=== PATIENT | male | born 1990 | race Hispanic/Latino ===

== ENCOUNTER 2024-11-20 19:21 | Emergency (ER) | payer OTHER ==
[~2024-11-20] VITALS: Ht 165.1 cm; Wt 77.6 kg
[~2024-11-20 19:21] MED LIST: ACET-2743 PO; IBUP-2077 PO
--- NOTE | 2024-11-20 19:50 | ERN ---
ED Note History of Present Illness Stated Complaint: C/O HEADACHE,SORE THROAT, PAIN TO EARS,FEVER Chief Complaint: Sore Throat Time Seen by MD: 19:29 Dictation: PATIENT IS A 34-YEAR-OLD MALE COMING IN TODAY WITH FEVER CHILLS AND A SORE THROAT SINCE SUNDAY. HE STATES HE HAS HAD NO NAUSEA VOMITING DOES HAVE A FRONTAL HEADACHE. STATES HE WENT TO [facility] ER ON SUNDAY AND WAS PRESCRIBED AMOXICILLIN 500 T.I.D.. STATES HIS THROAT GOT MILDLY BETTER AND THEN CAME HERE ON SUNDAY AND WAS SEEN, CT WAS DONE THAT DID NOT SHOW AN ABSCESS BUT THERE WERE NO ADDITIONAL MEDICATIONS GIVEN. PATIENT NOW TODAY FOR MORE RELIEF. S NOT SEEN HIS PRIMARY CARE DOCTOR FOR MANAGEMENT. 101.7. VOICE IS CLEAR Allergies: Coded Allergies: No Known Drug Allergies (Unverified Allergy, Unknown, 11/18/24) Home Meds Active Scripts Acetaminophen (Tylenol Extra Strength) 500 Mg Tablet, 1000 MG PO QID PRN for PAIN for 10 Days, #20 TAB Prov:ALBERTO DAVIS DO 11/18/24 Ibuprofen (Ibuprofen 800 mg Tab) 800 Mg Tab, 800 MG PO Q6H PRN for PAIN, #30 TAB Prov:ALBERTO DAVIS DO 11/18/24 Past Medical History Past Medical History: No Pertinent History Surgical History: Other Surgical History Other: LEFT KNEE SX RN Note Reviewed/Agreed w/PFSH: Yes Review of System Dictation CONSTITUTIONAL: NEGATIVE EXCEPT FOR HPI FEVER CHILLS HEAD/FACE: NEGATIVE EXCEPT FOR HPI EENT: NEGATIVE EXCEPT FOR HPI SORE THROAT WITH PAINFUL SWALLOWING RESPIRATORY: NEGATIVE EXCEPT FOR HPI GASTROINTESTINAL/ABDOMINAL: NEGATIVE EXCEPT FOR HPI GENITOURINARY: NEGATIVE EXCEPT FOR HPI MUSCULOSKELETAL: NEGATIVE EXCEPT FOR HPI INTEGUMENTARY: NEGATIVE EXCEPT FOR HPI NEUROLOGICAL/PSYCH: NEGATIVE EXCEPT FOR HPI HEMATOLOGIC/LYMPHATIC: NEGATIVE EXCEPT FOR HPI ALL SYSTEMS NEGATIVE, EXCEPT NOTED ABOVE. 13 POINT REVIEW OF SYSTEMS ASSESSED AND ALL NEGATIVE EXCEPT FOR ABOVE. Initial Vital Sign VS Vital Signs Date Time Temp Pulse Resp B/P (MAP) Pulse Ox O2 Delivery O2 Flow Rate FiO2 11/20/24 19:24 101.7 107 20 137/83 97 Room Air 11/20/24 20:23 0 21 Physical Exam Dictation VITAL SIGNS REVIEWED GENERAL APPEARANCE: ALERT, ORIENTED X 3, MODERATE ACUTE DISTRESS, WELL DEV ELOPED, NOURISHED. HEAD AND FACE: NON-TRAUMATIC. EYES: PERRL, PINK CONJUNCTIVAS, EYELID NO TRAUMA, ANTERIOR CHAMBER WITH ARCUS SENILIS. EARS: PINNAS INTACT AND NO SIGNS OF TRAUMA OR ERYTHEMA EAR CANALS CLEAR AND NO DISCHARGE TM NO ERYTHEMA NOSE: NO DISCHARGE, NO BLEEDING. OROPHARYNX: MOUTH NORMAL, TONGUE PINK, PHARYNX CLEAR, BILATERAL TONSILS 3/4 BILATERALLY AND ERYTHEMATOUS. NO UVULAR DEVIATION VOICE IS CLEAR, NO ABSCESSES NOTED, MUCOUS MEMBRANE MOIST NECK: SUPPLE, NON-TENDER, NO THYROMEGALY, NO MASSES, NO JVD, NO BRUITS BREAST:DEFERRED CHEST:NO TENDERNESS, NO CREPITUS, NO PARADOXICAL MOVEMENT, NO RETRACTIONS LUNGS:CLEAR, WELL-VENTILATED, SYMMETRIC, NO RALES, NO WHEEZING, NO RHONCHI, NO STRIDOR, GOOD BREATH SOUNDS BILATERALLY HEART: REGULAR RATE, REGULAR RHYTHM, NO MURMUR, NO GALLOPS VASCULAR: NO PERIPHERAL EDEMA, ABDOMEN: SOFT, POSITIVE BOWEL SOUNDS, NONDISTENDED, NO GUARDING, NONTENDER, NO REBOUND, NO MASSES NO HEPATOMEGALY, NO SPLENOMEGALY, NO RAMON'S SIGN, NO HERNIAS. RECTAL: DEFERRED GENITAL: DEFERRED NEUROLOGICAL: NORMAL SPEECH, MOTOR FUNCTION INTACT, SENSORY FUNCTION INTACT MUSCULOSKELETAL: NECK NONTENDER, FULL RANGE OF MOTION, BACK NONTENDER, FULL RANGE OF MOTION, EXTREMITIES: NONTENDER, FULL RANGE OF MOTION SKIN: COLOR PINK, DRY, NO TURGOR, NO RASH, NO LACERATIONS, NO ABRASIONS, NO CONTUSIONS. LYMPHATIC: DEFERRED Results (Laboratory/Radiology) Labs Reviewed?: Yes ED Course ED Course Orders Procedure Category Date Status Time Saline Lock Iv CPOE 11/20/24 Transmitted 19:45 Ceftriaxone 2gm Vial PHA 11/20/24 Complete (Rocephin 2gm Inj) 19:45 Ketorolac PHA 11/20/24 Complete Tromethamine 30mg/Ml 20:00 Dexamethasone 4mg/Ml PHA 11/20/24 Complete 1ml Vial (Dexametha 19:45 Current Medications Medications (Trade) Dose Ordered Sig/Lorenza Route PRN Reason Start Time Stop Time Status Last Admin Dose Admin Ceftriaxone Sodium (Rocephin 2gm Inj) 2 gm ONCE STAT IVPB 11/20/24 19:45 11/20/24 19:49 DC 11/20/24 20:04 Dexamethasone Sodium Phosphate (dexaMETHasone 4MG/ML 1ML VIAL) 8 mg ONCE STAT IV 11/20/24 19:45 11/20/24 19:49 DC 11/20/24 20:04 Ketorolac Tromethamine (toRADol) 30 mg ONCE ONCE IVP 11/20/24 20:00 11/20/24 20:01 DC 11/20/24 20:04 Vital Signs Date Time Temp Pulse Resp B/P (MAP) Pulse Ox O2 Delivery O2 Flow Rate FiO2 11/20/24 20:23 100.2 90 18 119/69 98 Room Air* 0 21 11/20/24 19:24 101.7 107 20 137/83 97 Room Air 1950/PATIENT WILL BE TREATED WITH IV ROCEPHIN 2 G, TORADOL 30, DECADRON 8 MG FOR OUTPATIENT TREATMENT FAILURE FOR ACUTE TONSILLITIS. CAT SCAN DONE TWO DAYS AGO DOES NOT SHOW ANY DRAINABLE MASS AND NO ABSCESS. PATIENT WILL BE TREATED AND REFERRED TO HIS PRIMARY CARE DOCTOR TOMORROW WITHOUT FAIL FOR MANAGEMENT. 2030/PATIENT RECEIVED ANTIBIOTICS DIRECTED ABOVE. STATES HE FEELS MARKEDLY IMPROVED AFTER TREATMENT. HE IS AWARE THAT HE HAS TO STOP AMOXICILLIN WE WILL START ON AUGMENTIN 875 B.I.D. FOR SEVEN MORE DAYS AND TO FOLLOW UP WITH HIS PRIMARY CARE DOCTOR TOMORROW FOR ENT REFERRAL Medical Decision Making MDM MEDICAL DISCHARGE MAKING BASED ON EMPIRIC TREATMENT FOR ACUTE STREPTOCOCCAL TONSILLITIS AND FAILED OUTPATIENT TREATMENT. PATIENT RECEIVED ROCEPHIN 2 G, TORADOL 30, DECADRON 8 MG IV PUSH. DISCHARGED HOME ON AUGMENTIN 875 AND PREDNISONE TOLD SEE HIS PRIMARY CARE DOCTOR FOR ENT REFERRAL DX & DISP Disposition: Discharge Departure Impression: Primary Impression: Acute streptococcal tonsillitis, unspecified Additional Impression: Failure of outpatient treatment Condition: Stable Scripts Prednisone (Prednisone) 20 Mg Tablet 1 TAB PO AD for 6 Days, #14 TAB 0 Refills TAKE 1 TAB BY MOUTH THREE TIMES PER DAY X3 DAYS, THEN TAKE 1 TAB BY MOUTH TWICE A DAY X2 DAYS, THEN TAKE 1 TAB BY MOUTH ONCE A DAY X1 DAY. Prov: JOSEPH CLEMENTS NP 11/20/24 Amoxicillin/Potassium Clav (Amox Tr-K Clv 875-125 mg Tab) 875 Mg-125 Mg Tablet 1 EACH PO BID for 7 Days, #14 TAB 0 Refills Prov: JOSEPH CLEMENTS NP 11/20/24 Additional Instructions: FOLLOW-UP WITH PRIMARY CARE PROVIDER IN 1 TO 2 DAYS. TAKE MEDICATIONS DIRECTED HERE IN THE EMERGENCY ROOM. OKAY TO CONTINUE HOME MEDICATIONS UNLESS OTHERWISE DISCUSSED DURING YOUR VISIT IN THE EMERGENCY ROOM TODAY. RETURN TO YOUR NEAREST EMERGENCY ROOM IF SYMPTOMS WORSEN OR IF THERE IS NO IMPROVEMENT. CALL 911 IF YOU NEED IMMEDIATE ASSISTANCE. TAKE TYLENOL OR MOTRIN [id number] NEEDED AND IF NO CONTRAINDICATIONS ARE PRESENT. INCREASE ORAL HYDRATION. A WOUND CULTURE OR URINE CULTURE WAS ORDERED HERE IN THE EMERGENCY ROOM DEPARTMENT PLEASE FOLLOW-UP WITH PRIMARY CARE PROVIDER AND ADVISE THEM TO GET REPEAT PORTS FROM OUR FACILITY. IF YOU HAD ANY MARGIE WRAP/SPLINTS THAT WERE APPLIED HERE, PLEASE DO NOT REMOVE THEM UNTIL YOU SEE YOUR PRIMARY CARE OR SPECIALTY. STOP AMOXICILLIN FROM YOUR ER VISIT. BEGIN AUGMENTIN 875 DIRECTED UNTIL GONE. TAKE PREDNISONE DIRECTED UNTIL GONE WITH FOOD. SEE YOUR PRIMARY CARE DOCTOR FOR ENT REFERRAL IN THE NEXT 1-2 DAYS Referrals: SELF,REFERRAL (PCP) Time of Disposition: 20:30 I have reviewed the case, and I agree with, Diagnosis and Plan JOSEPH CLEMENTS NP Nov 20, 2024 19:50
[2024-11-20] MEDS: cefTRIAXone 2GM VIAL IVPB STA (20:04)
[2024-11-20] MEDS: ketOROlac 30MG VIAL (30MG/ML) IVP ONE (20:04)
[2024-11-20] MEDS: dexaMETHasone SOD PHOSPHATE 4 MG/ML 1ML VIAL IV STA (20:04)
[2024-11-20 20:23] VITALS: BP 119/69; PULSE 90; RESP 18; TEMP 100.3; O2SAT 98
[2024-11-20] MEDS ORDERED: AMOX1TAB16 PO (20:31)
[2024-11-20] MEDS ORDERED: PRED20TA3 PO (20:31)
== END 2024-11-20 20:50 | disposition home or self-care (01) ==
LOC: EDH 19:21
DX: J03.00 Acute streptococcal tonsillitis, unspecified (principal)
CPT/HCPCS: 99284; 96365; 96375; J1100; J1885; J0696